=== PATIENT | female | born 1985 | race Caucasian/White ===

== ENCOUNTER → 2017-12-31 | Outpatient (CLI) | payer BC ==
[~2017-12-31] MED LIST: ACETAMINOPHEN-1 EAC1 PO; ACYCLOVIR 400400 MG PO; ADDERALL 10 MG10 MG PO; AZITHROMYCIN 2250 MG PO; BIRTH CONTROL; CHERACOL COUGH120 ML PO; CIPRO500 MG PO; HYDROCODONE-AP1 EAC6 PO; KEFLEX500 MG PO; MEDROLDOSEPACK PO; NORCO 5-325 TA1 EAC1 PO; NORCO 5-325 TA1 EACH PO; PHENERGAN 25 MG25 M1 PO; PREDNISONE 20 M20 MG PO; PROTONIX40 M1 PO; TESSALON200 MG PO; TRILEPTAL150 MG PO; VENTOLIN17 GM INH; VITAMIN B-12500 MCG PO; VYVANSE50 MG PO; ZANAFLEX4 M1 PO
== END ==
LOC: M.RAD 13:26
DX: M47.816 Spondylosis without myelopathy or radiculopathy, lumbar region (principal); M54.6 Pain in thoracic spine; I10 Essential (primary) hypertension